=== PATIENT | female | born 1990 | race Caucasian/White ===

== ENCOUNTER 2016-10-30 20:54 | Emergency (ER) | payer OTHER | END 2016-10-30 21:44 | disposition home or self-care (01) | LOC: ER 20:54 | DX: T81.4XXA Infection following a procedure, initial encounter (principal); L08.9 Local infection of the skin and subcutaneous tissue, unspecified; Z88.2 Allergy status to sulfonamides; Z88.1 Allergy status to other antibiotic agents | CPT/HCPCS: 87070; 87205; 99283; A9270-GY ==